=== PATIENT | female | born 1970 | race Caucasian/White ===

== ENCOUNTER → 2024-09-11 | Outpatient (CLI) | payer OTHER, SELFPAY ==
[2024-09-11 13:40] LABS: Erythrocyte Sedimentation Rate 14 mm/hr (0-30)
[2024-09-11 13:43] LABS: Absolute Lymphocyte Count 1.97 X10^3/uL (0.83-4.51); Absolute Neutrophil Count 8.3 X10^3/uL (2.0-7.7); Basophil# 0.02 X10^3/uL; Basophil% 0.2 % (0-1); Eosinophil# 0.04 X10^3/uL; Eosinophils% 0.4 % (0-5); Hematocrit 44.3 % (37-47); Hemoglobin 14.8 g/dL (12.0-15.0); Lymphocyte # 1.97 X10^3/ul (0.83-4.51); Lymphocyte % 18.1 % (19-41); Mean Corp Hgb Conc 33.4 g/dL (32-36); Mean Corpuscular Hgb 31.2 pg (27.0-32.0); Mean Corpuscular Volume 93.3 fL (81-99); Mean Platelet Vol. 12.4 fl (6.2-12.0); Monocyte# 0.56 X10^3/uL; Monocyte% 5.1 % (0-10); NRBC Flagged by Analyzer 0 % (0-5); Neutrophil # 8.25 X10^3/uL (2.7-7.7); Neutrophil % 75.8 % (47-70); Platelet Count 242 K/mm3 (150-450); RBC Distribution Width CV 12.2 % (11.6-14.6); Red Blood Count 4.75 M/mm3 (4.2-5.4); White Blood Count 10.9 K/mm3 (4.4-11.0)
[2024-09-11 14:18] LABS: CRP 3.03 mg/L (0.0-3.0)
[2024-09-11 14:22] LABS: ALB/GLOB Ratio 1.4 RATIO (0.9-2.4); AST(SGOT) 24 U/L (<=31); Alanine Aminotransfer ALT/SGPT 23 U/L (<=34); Albumin, Serum 4.5 g/dL (3.5-5.0); Alkaline Phosphatase 128 U/L (35-104); Anion Gap 14 (5-15); BUN 13 mg/dL (4-19); BUN/Creat Ratio 16.8 RATIO (10-20); Carbon Dioxide 23.8 mmol/L (21.0-32.0); Chloride 103 mmol/L (98-108); Creatinine, Serum 0.78 mg/dL (0.70-1.20); EST Glomerular Filtration Rate 90 (>60); Globulin 3.2 g/dL (2.2-4.2); Glucose 134 mg/dL (70-99); Potassium 3.6 mmol/L (3.3-5.1); Protein, Total 7.7 g/dL (5.9-8.4); Sodium Level 141 mmol/L (133-145); Total Bilirubin 0.16 mg/dL (0.00-1.30)
== END | disposition home or self-care (01) ==
PROVIDERS: Referring Provider Nurse Practitioner Primary Care; Visit Provider Nurse Practitioner Primary Care
DX: L50.9 Urticaria, unspecified (principal); E03.9 Hypothyroidism, unspecified
CPT/HCPCS: 36415; 80053; 84443; 85025; 85652; 86003; 86005; 86038; 86140

== ENCOUNTER → 2024-10-26 | Outpatient (CLI) | payer OTHER, SELFPAY ==
[2024-10-26 09:04] LABS: Hematocrit 36.4 % (37-47); Hemoglobin 12.1 g/dL (12.0-15.0); Mean Corp Hgb Conc 33.2 g/dL (32-36); Mean Corpuscular Hgb 31.7 pg (27.0-32.0); Mean Corpuscular Volume 95.3 fL (81-99); Mean Platelet Vol. 11.6 fl (6.2-12.0); Platelet Count 201 K/mm3 (150-450); RBC Distribution Width CV 12.4 % (11.6-14.6); RBC Distribution Width SD 42.6 fl (35.1-43.9); Red Blood Count 3.82 M/mm3 (4.2-5.4); White Blood Count 8.1 K/mm3 (4.4-11.0)
[2024-10-26 10:13] LABS: ALB/GLOB Ratio 1.7 RATIO (0.9-2.4); AST(SGOT) 16 U/L (<=31); Alanine Aminotransfer ALT/SGPT 17 U/L (<=34); Albumin, Serum 4.3 g/dL (3.5-5.0); Alkaline Phosphatase 104 U/L (35-104); Anion Gap 12 (5-15); BUN 13 mg/dL (4-19); BUN/Creat Ratio 16.9 RATIO (10-20); Calcium,Total 9.5 mg/dL (7.6-11.0); Carbon Dioxide 26.2 mmol/L (21.0-32.0); Chloride 102 mmol/L (98-108); Creatinine, Serum 0.74 mg/dL (0.70-1.20); EST Glomerular Filtration Rate 95 (>60); Globulin 2.6 g/dL (2.2-4.2); Glucose 88 mg/dL (70-99); Potassium 3.6 mmol/L (3.3-5.1); Protein, Total 6.9 g/dL (5.9-8.4); Sodium Level 140 mmol/L (133-145); Total Bilirubin 0.21 mg/dL (0.00-1.30)
[2024-10-27 06:08] LABS: CA 27.29 22.5 U/mL (0.0-38.6)
== END | disposition home or self-care (01) ==
DX: E03.9 Hypothyroidism, unspecified (principal); Z85.3 Personal history of malignant neoplasm of breast
CPT/HCPCS: 36415; 80053; 84439; 84443; 85027; 86300

== ENCOUNTER 2024-12-25 18:33 | Emergency (ER) | payer OTHER, SELFPAY ==
[2024-12-25 18:34] VITALS: BP 141/96; PULSE 111; RESP 18; TEMP 36.3; O2SAT 97; BMI 27.8
--- NOTE | 2024-12-25 20:35 | EX.ED.DYSGE1 ---
HPI History of Present Illness Chief Complaint: Allergic Reaction [facility] Medical History (Updated 12/25/24 @ 20:[address] Maik Garcia, DO) Allergic dermatitis Cancer Home Medications ?Medication ?Instructions ?Recorded ?Last Taken ?Type cholecalciferol (vitamin D3) 25 25 mcg PO QDAY 12/03/24 Unknown History mcg (1,000 unit) capsule colestipol 1 gram tablet g PO 12/03/24 Unknown History hydroxyzine HCl 25 mg tablet 25 mg PO 4X/DAY 12/03/24 Unknown History levothyroxine 100 mcg tablet 100 mcg PO QDAY 12/03/24 Unknown History multivitamin (Daily Multi-Vitamin 1 tab PO QDAY 12/03/24 Unknown History tablet) prednisone 10 mg tablet 10 mg PO DAILY #30 tabs 12/03/24 Unknown Rx ondansetron 4 mg disintegrating 4 mg PO Q8H PRN PRN Nausea #10 tabs 12/25/24 Unknown Rx tablet Allergy/AdvReac Type Severity Reaction Status Date / Time acetaminophen (From Percocet) Allergy Itching Verified 12/25/24 18:36 buspirone (From BuSpar) Allergy Itching Verified 12/25/24 18:36 doxepin Allergy Other Verified 12/25/24 18:36 grass pollen Allergy Other Verified 12/25/24 18:36 milk (dairy) Allergy Other Verified 12/25/24 18:36 oxycodone (From Percocet) Allergy Itching Verified 12/25/24 18:36 peanut Allergy Other Verified 12/25/24 18:36 pregabalin (From Lyrica) Allergy Other Verified 12/25/24 18:36 shellfish derived Allergy Anaphylaxis Verified 12/25/24 18:36 Family History (Updated 12/03/24 @ 08:18 by Yandel Redmond) Other Cancer Heart disease Hypercholesterolemia Surgical History (Updated 12/03/24 @ 08:16 by Yandel Redmond) H/O lumpectomy History of cholecystectomy History of appendectomy History of ankle surgery History of hysterectomy Social History Smoking Status: Never smoker EXAM Physical Exam Const Vital Signs: 12/25/24 18:34 12/25/24 21:00 12/25/24 21:23 Temperature 97.4 F L 98.1 F Temperature Source Temporal Pulse Rate 111 H 73 75 Respiratory Rate 18 18 18 Blood Pressure 141/96 H 102/69 Blood Pressure Mean 111 80 Pulse Ox 97 98 97 Oxygen Delivery Method Room Air [place] [facility] [place] Medical decision making narrative: HISTORY OF PRESENT ILLNESS: Chief complaint: Allergic reaction 54-year-old female history of allergic dermatitis and thyroid disease presents with concern for allergic reaction. Notes for the past year she has had intermittent episodes of urticaria and hives. Notes she is taken multiple antihistamines including Pepcid, Benadryl and is currently on Atarax. Notes itchiness worsened over the last 1 to 2 days. No recent new foods, travel, detergents. No obvious inciting event. Denies difficulty swallowing, throat or chest tightness, shortness of breath or abdominal pain at this time REVIEW OF SYSTEMS: As per [facility] PHYSICAL EXAM: Nursing triage notes reviewed, Vital signs reviewed Constitutional: please see [facility] HENT: MMM Eyes: Pupils equal round and reactive to light, Extraocular muscles intact Neck: No stridor, no JVD, full neck ROM Lungs: Clear to auscultation, No wheezing or rales. No increased work of breathing, no conversational dyspnea, no accessory muscle use, no nasal flaring. No respiratory distress noted Heart: Regular rate and rhythm, No murmurs, No rubs and No gallops, 2+ distal pulses (radial, femoral, posterior tibial) in all extremities Abdomen: Soft, there is no tenderness, rigidity, rebound or guarding, no obvious peritoneal signs, no palpable pulsatile abdominal masses, no auscultated abdominal bruit : No CVAT Extremities: No edema Neuro: No new focal neurological deficits, cranial nerves II through XII intact, 5/5 strength in all present extremities. Intact sensation to light touch in all present extremities, 2+ reflexes bilateral patella tendons. Skin: Scattered urticaria noted on bilateral upper and lower extremities MEDICAL DECISION MAKING: Chief Complaint: please see HPI External records reviewed: Reviewed prior outpatient record. Factors affecting care: History of allergic dermatitis [facility] Narrative: Patient was initially tachycardic otherwise afebrile and nontoxic-appearing. Exam consistent with urticaria. I considered the following differential diagnosis: Urticaria, allergy, anaphylaxis, anaphylactic shock Exam not consistent with anaphylaxis or anaphylactic shock. Attempted to treat the patient urticaria with IM epinephrine, Pepcid and Claritin however these treatments did not improve the patient's symptoms on reevaluation heart rate improved to 75. She essentially is on maximal medical therapy and has been for the greater part of the last year. Certainly she does not have a life obtaining issue today. No sign of anaphylaxis or anaphylactic shock. No indication for epi drip or admission at this time. Recommended outpatient allergy immunology follow-up. The patient and/or family, caregivers express understanding. The patient and/or family, caregivers agrees with the plan. Shared decision making: I will have a discussion with the patient and or visitors regarding risk/benefits of further testing or admission. They will be made aware of of the risk/benefits inherent in this decision they will be given the opportunity to voice understanding. Total critical care time today provided was at least 0 minutes. This excludes separately billable procedures. Critical care time (if documented) is secondary to the patient having high probability of clinically significant/life threatening deterioration in the patient's condition which required my urgent intervention. Impression: 1. Urticaria 2. History of allergic dermatitis Dispo: Discharge home This note was generated with [employer] dictation software. It may contain incorrect words, spelling, and punctuation that were not noted in review of the chart prior to signing. Discharge Plan Triage Chief Complaint: Allergic Reaction ED Provider: Maik Garcia Dx/Rx/DC Orders Clinical Impression: Urticaria Instructions: ED Allergic Reaction Local Other, ED Hives (Adult) Prescriptions: New ondansetron 4 mg tablet,disintegrating 4 mg PO Q8H PRN PRN (Reason: Nausea) Qty: 10 0RF No Action levothyroxine 100 mcg tablet 100 mcg PO QDAY colestipol 1 gram tablet PO cholecalciferol (vitamin D3) 25 mcg (1,000 unit) capsule 25 mcg PO QDAY multivitamin [Daily Multi-Vitamin] Tablet 1 tab PO QDAY hydroxyzine HCl 25 mg tablet 25 mg PO 4X/DAY prednisone 10 mg tablet 10 mg PO DAILY Qty: 30 0RF Rx Instructions: 4 tablets daily x3 days, then 3 tablets daily x3 days, then 2 tablets daily x3 days, then 1 tablet daily x3 days Primary Care Provider: Rosario Patel Activity Restrictions/Additional Instructions: Thank you for trusting us with your care today! Your presentation is consistent with urticaria. You will need prompt follow with allergy and immunology. Please take Tylenol (2 pills, 650 mg), ibuprofen (2 pills, 400 mg) every 6 hours as needed for pain and fever control. Please return to the emergency department if your symptoms change or worsen. Please follow with your primary care physician for further outpatient evaluation and management. There is an knitting machine operator helper locally Dr. Ferrell located at [facility] [address] Print Language: French Disposition Disposition: Home, Self Care Discharge Date/Time: 12/25/24 21:29
[2024-12-25 21:00] VITALS: PULSE 73; RESP 18; O2SAT 98
[2024-12-25] MEDS: Epi Pen (EQUIV) 0.3 MG Syringe IM (21:03)
[2024-12-25 21:23] VITALS: BP 102/69; PULSE 75; RESP 18; TEMP 36.7; O2SAT 97
== END 2024-12-25 21:29 | disposition home or self-care (01) ==
LOC: ED 21:06
PROVIDERS: Emergency Provider Emergency Medicine; PCP Family Medicine; Visit Provider Emergency Medicine
DX: L50.9 Urticaria, unspecified (principal)
CPT/HCPCS: 99283

== ENCOUNTER → 2025-04-24 | Outpatient (CLI) | payer OTHER, SELFPAY ==
[2025-04-24 09:02] LABS: Hematocrit 35.9 % (37-47); Hemoglobin 11.6 g/dL (12.0-15.0); Immature Granulocytes Count 0.010 X10^3/uL (0.0-0.0); Mean Corp Hgb Conc 32.3 g/dL (32-36); Mean Corpuscular Volume 95.7 fL (81-99); Mean Platelet Vol. 12.5 fl (6.2-12.0); NRBC Flagged by Analyzer 0 % (0-5); Platelet Count 176 K/mm3 (150-450); RBC Distribution Width CV 12.0 % (11.6-14.6); RBC Distribution Width SD 42.1 fl (35.1-43.9); Red Blood Count 3.75 M/mm3 (4.2-5.4); White Blood Count 6.3 K/mm3 (4.4-11.0)
[2025-04-24 09:39] LABS: AST(SGOT) 21 U/L (<=31); Alanine Aminotransfer ALT/SGPT 20 U/L (<=34); Albumin, Serum 4.3 g/dL (3.5-5.0); Alkaline Phosphatase 107 U/L (35-104); Anion Gap 10 (5-15); BUN 14 mg/dL (4-19); BUN/Creat Ratio 21.6 RATIO (10-20); Calcium,Total 9.4 mg/dL (7.6-11.0); Carbon Dioxide 26.8 mmol/L (21.0-32.0); Chloride 107 mmol/L (98-108); Globulin 2.6 g/dL (2.2-4.2); Glucose 140 mg/dL (70-99); Potassium 3.9 mmol/L (3.3-5.1)
[2025-04-25 08:09] LABS: CA 27.29 28.1 U/mL (0.0-38.6)
== END | disposition home or self-care (01) ==
LOC: LAB 07:45
PROVIDERS: PCP Family Medicine
DX: Z85.3 Personal history of malignant neoplasm of breast (principal)
CPT/HCPCS: 36415; 80053; 85025; 86300

== ENCOUNTER → 2025-05-27 | Outpatient (CLI) | payer OTHER, SELFPAY ==
--- NOTE | 2025-05-28 12:11 | STRESSREP_ITS ---
Stress Test Report Date: 05/27/2025 Procedure: Exercise tolerance test Indications: Dyspnea on exertion Consent: Per the patient Procedure: The patient exercised on a Rico protocol for 3 minutes and 36 seconds achieving a peak heart rate of 160 bpm (97% predicted maximal heart rate) with a peak blood pressure 138/70 mmHg and a peak MET capacity of approximately 6.0 MET's. The baseline ECG demonstrated sinus tachycardia at 110 bpm. The peak exercise ECG showed sinus tachycardia with no ischemic changes. Rare PVC was noted. The functional capacity was considered suboptimal for age. The patient had no complaints of chest discomfort during exercise or recovery. She did however complain of shortness of breath with exertion. The examination was discontinued secondary to target heart rate being achieved and dyspnea. Impression: 1. Technically adequate (percent predicted maximal heart rate greater than 85%) exercise tolerance test 2. Peak exercise ECG with no ischemic changes. Baseline sinus tachycardia. 3. No chest pain was reported. Shortness of breath reported with exercise. Suboptimal functional capacity for age. This note was generated with [employer] software. It may contain incorrect words, spelling, and punctuation that were not noted in checking the note before signing.
== END | disposition home or self-care (01) ==
LOC: CVS 12:16
PROVIDERS: PCP Family Medicine; Referring Provider Specialist/Technologist Athletic Trainer; Visit Provider Specialist/Technologist Athletic Trainer
DX: E78.2 Mixed hyperlipidemia (principal); R06.02 Shortness of breath; R00.0 Tachycardia, unspecified; Z87.891 Personal history of nicotine dependence
CPT/HCPCS: 93017